=== PATIENT | male | born 1980 | race Caucasian/White ===

== ENCOUNTER 2018-12-08 13:06 | Outpatient (CLI) | payer OTHER ==
--- NOTE | 2018-12-08 13:26 | RAD ---
EXAM: XR Lumbar Spine 2 Or 3 View PROVIDED CLINICAL HISTORY: Follow-up compression fracture. COMPARISON: None FINDINGS: There is a compression fracture involving the superior endplate of the L2 vertebral body with slight anterior displacement of the anterior superior fracture fragment of the L2 vertebral body. The exact age of this fracture is difficult to determine based on radiographic evaluation. No additional fracture is seen involving the lumbar spine, and there is no evidence of a subluxation. IMPRESSION: Compression fracture superior endplate L2 vertebral body as described above. No prior studies are alonso ilable to evaluate for acuteness of this fracture. Acuteness of the fracture is unable to be determined based on radiographic evaluation.
== END 2018-12-08 13:07 | disposition home or self-care (01) ==
LOC: TBSIIMAG 13:06
PROVIDERS: ATTEND Neurological Surgery
DX: S32.029D Unspecified fracture of second lumbar vertebra, subsequent encounter for fracture with routine healing (principal)
CPT/HCPCS: 72100